=== PATIENT | female | born 1965 | race Asian ===

== ENCOUNTER 2025-02-24 21:45 | Inpatient (IN) | payer MEDICAID ==
[~2025-02-24] VITALS: Ht 157.5 cm; Wt 69.9 kg
[2025-02-24 23:00] VITALS: BP 138/82; PULSE 61; RESP 20; TEMP 36.6404
[2025-02-24] MEDS ORDERED: ONDANSETRON HCL 4MG/2ML INJ IV PRN (23:00)
[2025-02-24] MEDS ORDERED: MAGNESIUM/ALUMINUM HYDROXIDE/SIMETHICONE 30ML UDC PO PRN (23:00)
[2025-02-24] MEDS ORDERED: ACETAMINOPHEN 325MG TABLET PO PRN (23:00)
[2025-02-24] MEDS ORDERED: CLONIDINE 0.1MG TABLET PO PRN (23:00)
[2025-02-24] MEDS ORDERED: IPRATROPIUM/ALBUTEROL 0.5-3(2.5)MG/3ML NEB HHN PRN (23:00)
[2025-02-25] MEDS: DOCUSATE SODIUM 100MG CAPSULE PO PRN (06:43)
[2025-02-25 08:00] VITALS: BP 148/70; PULSE 83; TEMP 36.2
[2025-02-25] MEDS ORDERED: DEXTROSE 50% WATER 50ML SYRINGE IV PRN (08:45)
[2025-02-25] MEDS: AMLODIPINE 10MG TABLET PO SCH (09:23)
[2025-02-25] MEDS: INSULIN LISPRO 100 UNITS/ML SUBCUT SCH (09:25)
[2025-02-25 10:49] LABS: BASOPHILS % 0.2 % (0.0-2.0); EOSINOPHILS % 1.8 % (0.0-5.0); HEMATOCRIT. 42.6 % (36.0-48.0); HEMOGLOBIN. 14.2 g/dL (12.0-16.0); LYMPHOCYTES % 13.5 % (20.0-50.0); MEAN PLATELET VOLUME 9.2 fl (7.4-10.4); MONOCYTES % 7.7 % (2.0-8.0); NEUTROPHILS % 76.8 % (40.0-76.0); PLATELET 259 x1000/uL (130-400); RED BLOOD CELL COUNT 4.42 mill/uL (4.2-5.4); RED CELL DISTRIBUTION WIDTH 13.4 % (11.6-14.6)
[2025-02-25 11:01] LABS: CREATININE 0.8 mg/dL (0.6-1.0); TRIGLYCERIDE 231 mg/dL (0-150); UREA NITROGEN BLOOD 18 mg/dL (9-23)
[2025-02-25 11:02] LABS: ASPARTATE AMINOTRANSFERASE 162 IU/L (<34); LDL CHOLESTEROL 118 mg/dL (5-100)
[2025-02-25 11:03] LABS: BILIRUBIN TOTAL 0.7 mg/dL (0.1-1.0); PROTEIN TOTAL 7.6 g/dL (6.0-8.3)
[2025-02-25] MEDS: BLOOD SUGAR DIAGNOSTIC STRIP TEST SCH (11:15)
[2025-02-25 12:00] VITALS: BP 146/76; PULSE 80; TEMP 36.4
[2025-02-25] MEDS: ENOXAPARIN 40MG/0.4ML SYR SUBCUT SCH (12:33)
[2025-02-25] MEDS ORDERED: LORAZEPAM 0.5MG TABLET PO PRN (12:45)
[2025-02-25 19:17] VITALS: BP 159/87; PULSE 83; TEMP 36.4
[2025-02-25] MEDS: MELATONIN 3MG TABLET PO SCH (20:30)
[2025-02-25] MEDS ORDERED: ATORVASTATIN CALCIUM 40MG TABLET PO SCH (21:00)
[2025-02-26 08:00] VITALS: BP 136/83; PULSE 77; TEMP 36.3
[2025-02-26 08:06] LABS: BASOPHILS % 0.4 % (0.0-2.0); EOSINOPHILS % 2.0 % (0.0-5.0); HEMATOCRIT. 41.5 % (36.0-48.0); HEMOGLOBIN. 13.8 g/dL (12.0-16.0); LYMPHOCYTES % 20.3 % (20.0-50.0); MEAN PLATELET VOLUME 9.2 fl (7.4-10.4); MONOCYTES % 10.0 % (2.0-8.0); NEUTROPHILS % 67.3 % (40.0-76.0); PLATELET 255 x1000/uL (130-400); RED BLOOD CELL COUNT 4.28 mill/uL (4.2-5.4); RED CELL DISTRIBUTION WIDTH 13.5 % (11.6-14.6)
[2025-02-26 08:16] LABS: CREATININE 0.7 mg/dL (0.6-1.0); UREA NITROGEN BLOOD 15 mg/dL (9-23)
[2025-02-26 08:17] LABS: FOLIC ACID (FOLATE) SERUM > 20.00 ng/mL (>5.38); PROTEIN TOTAL 7.5 g/dL (6.0-8.3); VITAMIN B12 SERUM 1306 pg/mL (211-911)
[2025-02-26 08:18] LABS: ASPARTATE AMINOTRANSFERASE 126 IU/L (<34); BILIRUBIN TOTAL 0.9 mg/dL (0.1-1.0)
[2025-02-26] MEDS: ACETAMINOPHEN 325MG TABLET PO PRN (09:40)
[2025-02-26 12:00] VITALS: BP 136/73; PULSE 77; RESP 18; TEMP 36.4; O2SAT 98
[2025-02-26 15:51] LABS: CLARITY URINE TURBID (CLEAR); COLOR URINE YELLOW (YELLOW); GLUCOSE URINE NEGATIVE (NEGATIVE); KETONES URINE NEGATIVE (NEGATIVE); LEUKOCYTE ESTERASE URINE 3+ (NEGATIVE); NITRITE URINE POSITIVE (NEGATIVE); OCCULT BLOOD URINE 1+ (NEGATIVE); PH URINE 6.5 (4.5-8.0); PROTEIN URINE TRACE (NEGATIVE); SPECIFIC GRAVITY URINE 1.012 (1.005-1.030); UROBILINOGEN URINE 0.2 E.U./dL (0.2-1.0)
[2025-02-26 16:04] LABS: BACTERIA URINE 1+; SQUAMOUS EPITHELIAL CELL URINE 1+ /lpf (RARE/1+)
[2025-02-26 20:00] VITALS: BP 140/72; PULSE 81; RESP 19; TEMP 37.2; O2SAT 96
[2025-02-27 08:00] VITALS: BP 120/76; PULSE 67; RESP 17; TEMP 36.5; O2SAT 97
[2025-02-27] MEDS: FOLIC ACID 1MG TABLET PO SCH (10:24)
[2025-02-27] MEDS: THIAMINE HCL 100MG TABLET PO SCH (10:24)
[2025-02-27 20:00] VITALS: BP 123/68; PULSE 73; RESP 20; TEMP 36.4; O2SAT 99
[2025-02-28 08:00] VITALS: BP 91/70; PULSE 68; RESP 19; TEMP 37.1; O2SAT 98
[2025-02-28 20:00] VITALS: BP 131/64; PULSE 66; RESP 18; TEMP 36.2; O2SAT 98
[2025-03-01 08:00] VITALS: BP 147/69; PULSE 63; RESP 16; TEMP 36.6; O2SAT 97
[2025-03-01] MEDS ORDERED: NALOXONE HCL 0.4MG/ML VIAL IV PRN (14:30)
[2025-03-01] MEDS: ERGOCALCIFEROL 50000UNITS CAPSULE PO SCH (18:21)
[2025-03-01 20:00] VITALS: BP 126/76; PULSE 71; RESP 18; TEMP 36.2; O2SAT 97
[2025-03-02 08:00] VITALS: BP 142/77; PULSE 69; RESP 18; TEMP 36.7; O2SAT 98
[2025-03-02] MEDS: HYDROCODONE/ACETAMINOPHEN 5/325MG TABLET PO PRN (12:56)
[2025-03-02 20:00] VITALS: BP 153/66; PULSE 71; RESP 20; TEMP 36.6; O2SAT 98
[2025-03-03 08:00] VITALS: BP 161/81; PULSE 64; RESP 16; TEMP 36.4; O2SAT 98
[2025-03-03] MEDS: DIPHENHYDRAMINE 25MG CAPSULE PO PRN (10:41)
[2025-03-03 20:00] VITALS: BP 133/71; PULSE 69; RESP 18; TEMP 36.2; O2SAT 95
[2025-03-04 08:00] VITALS: BP 138/78; PULSE 66; RESP 17; TEMP 37.2; O2SAT 98
[2025-03-04 20:00] VITALS: BP 131/75; PULSE 65; RESP 18; TEMP 36.6; O2SAT 98
[2025-03-05 08:00] VITALS: BP 110/56; PULSE 69; RESP 18; TEMP 36.9; O2SAT 100
[2025-03-05 08:14] LABS: BASOPHILS % 0.7 % (0.0-2.0); EOSINOPHILS % 4.2 % (0.0-5.0); HEMATOCRIT. 40.7 % (36.0-48.0); HEMOGLOBIN. 13.4 g/dL (12.0-16.0); LYMPHOCYTES % 33.4 % (20.0-50.0); MEAN PLATELET VOLUME 8.8 fl (7.4-10.4); MONOCYTES % 7.1 % (2.0-8.0); NEUTROPHILS % 54.6 % (40.0-76.0); PLATELET 250 x1000/uL (130-400); RED BLOOD CELL COUNT 4.17 mill/uL (4.2-5.4); RED CELL DISTRIBUTION WIDTH 12.8 % (11.6-14.6)
[2025-03-05 08:14] LABS: CREATININE 0.6 mg/dL (0.6-1.0); UREA NITROGEN BLOOD 12 mg/dL (9-23)
[2025-03-05 08:16] LABS: ASPARTATE AMINOTRANSFERASE 21 IU/L (<34); BILIRUBIN TOTAL 0.7 mg/dL (0.1-1.0); PROTEIN TOTAL 7.2 g/dL (6.0-8.3)
[2025-03-05 20:00] VITALS: BP 119/87; PULSE 67; RESP 18; TEMP 36.6; O2SAT 96
[2025-03-06 08:00] VITALS: BP 143/80; PULSE 101; RESP 16; TEMP 36.2; O2SAT 99
[2025-03-06 20:00] VITALS: BP 120/69; PULSE 60; RESP 18; TEMP 36.5; O2SAT 96
[2025-03-07 06:47] VITALS: PULSE 60; PULSE 69; RESP 18; RESP 20; TEMP 97.7
[2025-03-07 08:00] VITALS: BP 132/80; PULSE 75; RESP 16; TEMP 37.2; O2SAT 97
[2025-03-07] MEDS: HYDROCODONE/ACETAMINOPHEN 5/325MG TABLET PO PRN (08:36)
[2025-03-07 20:00] VITALS: BP 127/68; PULSE 67; RESP 18; TEMP 36.4; O2SAT 96
[2025-03-08 07:28] LABS: BASOPHILS % 0.6 % (0.0-2.0); EOSINOPHILS % 5.6 % (0.0-5.0); HEMATOCRIT. 42.2 % (36.0-48.0); HEMOGLOBIN. 13.8 g/dL (12.0-16.0); LYMPHOCYTES % 28.7 % (20.0-50.0); MEAN PLATELET VOLUME 9.1 fl (7.4-10.4); MONOCYTES % 7.9 % (2.0-8.0); NEUTROPHILS % 57.2 % (40.0-76.0); PLATELET 235 x1000/uL (130-400); RED BLOOD CELL COUNT 4.35 mill/uL (4.2-5.4); RED CELL DISTRIBUTION WIDTH 12.7 % (11.6-14.6)
[2025-03-08 07:48] LABS: CREATININE 0.6 mg/dL (0.6-1.0); UREA NITROGEN BLOOD 11 mg/dL (9-23)
[2025-03-08 08:00] VITALS: BP 129/74; PULSE 65; RESP 18; TEMP 36.5; O2SAT 96
[2025-03-08] MEDS: DIPHENHYDRAMINE HCL/ZINC ACET 28 GM CREAM TOP PRN (19:18)
[2025-03-08 20:00] VITALS: BP 133/79; PULSE 77; RESP 20; TEMP 36.1; O2SAT 98
[2025-03-08] MEDS: DULOXETINE HCL 20MG DR CAPSULE PO SCH (21:33)
[2025-03-09 08:00] VITALS: BP 117/72; PULSE 75; RESP 18; TEMP 36.3; O2SAT 96
[2025-03-09 20:00] VITALS: BP 125/76; PULSE 66; RESP 18; TEMP 36.4; O2SAT 97
[2025-03-10 08:00] VITALS: BP 121/71; PULSE 74; RESP 18; TEMP 36.7; O2SAT 95
[2025-03-10 20:00] VITALS: BP 135/74; PULSE 75; RESP 18; TEMP 36.6; O2SAT 96
[2025-03-11 08:00] VITALS: BP 153/82; PULSE 66; RESP 17; TEMP 36.7; O2SAT 99
[2025-03-11] MEDS ORDERED: INFLUENZA VACCINE 05/PF 0.5 ML SYRINGE IM ONE (18:45)
[2025-03-11 19:37] VITALS: BP 128/74; PULSE 67; RESP 18; TEMP 36.7; O2SAT 99
[2025-03-11 19:50] VITALS: BP 128/74; PULSE 67; RESP 18; TEMP 36.7; O2SAT 99
[2025-03-12 08:00] VITALS: BP 116/69; PULSE 74; RESP 18; TEMP 36.7; O2SAT 99
[2025-03-12 20:00] VITALS: BP 147/86; PULSE 96; RESP 18; TEMP 36.6; O2SAT 97
[2025-03-13 07:03] LABS: CREATININE 0.6 mg/dL (0.6-1.0); UREA NITROGEN BLOOD 14 mg/dL (9-23)
[2025-03-13 07:19] LABS: BASOPHILS % 0.5 % (0.0-2.0); EOSINOPHILS % 5.8 % (0.0-5.0); HEMATOCRIT. 40.7 % (36.0-48.0); HEMOGLOBIN. 13.7 g/dL (12.0-16.0); LYMPHOCYTES % 28.9 % (20.0-50.0); MEAN PLATELET VOLUME 9.6 fl (7.4-10.4); MONOCYTES % 8.1 % (2.0-8.0); NEUTROPHILS % 56.7 % (40.0-76.0); PLATELET 199 x1000/uL (130-400); RED BLOOD CELL COUNT 4.21 mill/uL (4.2-5.4); RED CELL DISTRIBUTION WIDTH 12.6 % (11.6-14.6)
[2025-03-13 08:00] VITALS: BP 122/63; PULSE 74; RESP 18; TEMP 36.7; O2SAT 100
[2025-03-13] MEDS ORDERED: DIPHENHYDRAMINE 50MG/ML VIAL IV PRN (12:00)
[2025-03-13] MEDS: DIPHENHYDRAMINE 25MG CAPSULE PO PRN (13:46)
[2025-03-13 20:00] VITALS: BP 147/63; PULSE 82; RESP 18; TEMP 36.8; O2SAT 99
[2025-03-14 08:00] VITALS: BP 121/67; PULSE 71; RESP 16; TEMP 36.4; O2SAT 95
[2025-03-14 20:00] VITALS: BP 116/66; PULSE 77; RESP 20; TEMP 36.1; O2SAT 98
[2025-03-15 08:00] VITALS: BP 139/84; PULSE 61; RESP 18; TEMP 36.5; O2SAT 98
[2025-03-15 20:00] VITALS: BP 128/71; PULSE 74; RESP 18; TEMP 36.4; O2SAT 95
[2025-03-16 08:00] VITALS: BP 131/76; PULSE 72; RESP 19; TEMP 36.5; O2SAT 95
[2025-03-16 20:00] VITALS: BP 121/70; PULSE 72; RESP 18; TEMP 36.4; O2SAT 100
[2025-03-17 08:00] VITALS: BP 125/74; PULSE 68; RESP 18; TEMP 36.5; O2SAT 100
[2025-03-17 11:20] LABS: TROPONIN I HIGH SENSITIVITY 46 ng/L (3.0-34)
[2025-03-17] MEDS: ASPIRIN 81MG EC TABLET PO NR (12:25)
[2025-03-17 20:00] VITALS: BP 119/62; PULSE 76; RESP 17; TEMP 36.7; O2SAT 97
[2025-03-17] MEDS: ATORVASTATIN CALCIUM 10MG TABLET PO SCH (21:29)
[2025-03-18 08:00] VITALS: BP 117/72; PULSE 64; RESP 18; TEMP 36.6; O2SAT 96
[2025-03-18 08:14] LABS: BASOPHILS % 0.7 % (0.0-2.0); EOSINOPHILS % 4.7 % (0.0-5.0); HEMATOCRIT. 41.1 % (36.0-48.0); HEMOGLOBIN. 13.6 g/dL (12.0-16.0); LYMPHOCYTES % 31.1 % (20.0-50.0); MEAN PLATELET VOLUME 9.5 fl (7.4-10.4); MONOCYTES % 8.4 % (2.0-8.0); NEUTROPHILS % 55.1 % (40.0-76.0); PLATELET 187 x1000/uL (130-400); RED BLOOD CELL COUNT 4.28 mill/uL (4.2-5.4); RED CELL DISTRIBUTION WIDTH 12.6 % (11.6-14.6)
[2025-03-18] MEDS: AMLODIPINE 2.5MG TABLET PO SCH (09:27)
[2025-03-18] MEDS: ASPIRIN 81MG EC TABLET PO SCH (09:27)
[2025-03-18 10:14] LABS: CREATININE 0.7 mg/dL (0.6-1.0); UREA NITROGEN BLOOD 15 mg/dL (9-23)
[2025-03-18 10:23] LABS: TROPONIN I HIGH SENSITIVITY 48 ng/L (3.0-34)
[2025-03-18 20:00] VITALS: BP 117/74; PULSE 74; RESP 18; TEMP 36.4; O2SAT 96
[2025-03-19 08:00] VITALS: BP 120/72; PULSE 80; RESP 20; TEMP 36.8; O2SAT 97
[2025-03-19 20:00] VITALS: BP 141/74; PULSE 73; RESP 18; TEMP 36.6; O2SAT 98
[2025-03-20 08:00] VITALS: BP 134/77; PULSE 69; RESP 20; TEMP 37.1; O2SAT 95
[2025-03-20 20:00] VITALS: BP 123/44; PULSE 75; RESP 18; TEMP 35.7; O2SAT 98
[2025-03-21 07:40] LABS: BASOPHILS % 0.6 % (0.0-2.0); EOSINOPHILS % 4.1 % (0.0-5.0); HEMATOCRIT. 39.9 % (36.0-48.0); HEMOGLOBIN. 13.4 g/dL (12.0-16.0); LYMPHOCYTES % 29.2 % (20.0-50.0); MEAN PLATELET VOLUME 9.6 fl (7.4-10.4); MONOCYTES % 8.4 % (2.0-8.0); NEUTROPHILS % 57.7 % (40.0-76.0); PLATELET 178 x1000/uL (130-400); RED BLOOD CELL COUNT 4.14 mill/uL (4.2-5.4); RED CELL DISTRIBUTION WIDTH 12.2 % (11.6-14.6)
[2025-03-21 08:00] VITALS: BP 117/57; PULSE 66; RESP 20; TEMP 36.4; O2SAT 95
[2025-03-21 08:04] LABS: CREATININE 0.7 mg/dL (0.6-1.0)
[2025-03-21 08:06] LABS: UREA NITROGEN BLOOD 8 mg/dL (9-23)
[2025-03-21 08:41] LABS: TROPONIN I HIGH SENSITIVITY 47 ng/L (3.0-34)
[2025-03-21 20:00] VITALS: BP 140/81; PULSE 74; RESP 18; TEMP 36.4; O2SAT 96
[2025-03-22 08:00] VITALS: BP 118/76; PULSE 71; RESP 16; TEMP 36.2; O2SAT 98
[2025-03-22 20:00] VITALS: BP 120/68; PULSE 66; RESP 20; TEMP 36.2; O2SAT 96
[2025-03-23 08:00] VITALS: BP 130/83; PULSE 71; RESP 19; TEMP 36.6; O2SAT 96
[2025-03-23 20:00] VITALS: BP 122/84; PULSE 69; RESP 20; TEMP 36; O2SAT 98
[2025-03-24 08:00] VITALS: BP 125/74; PULSE 77; RESP 19; TEMP 36.6; O2SAT 99
[2025-03-24 20:00] VITALS: BP 153/75; PULSE 65; RESP 18; TEMP 36.6; O2SAT 97
[2025-03-25 08:00] VITALS: BP 121/71; PULSE 74; RESP 18; TEMP 36.4; O2SAT 98
[2025-03-25 09:10] LABS: BASOPHILS % 0.8 % (0.0-2.0); EOSINOPHILS % 3.0 % (0.0-5.0); HEMATOCRIT. 40.1 % (36.0-48.0); HEMOGLOBIN. 13.2 g/dL (12.0-16.0); LYMPHOCYTES % 30.2 % (20.0-50.0); MEAN PLATELET VOLUME 9.3 fl (7.4-10.4); MONOCYTES % 6.0 % (2.0-8.0); NEUTROPHILS % 60.0 % (40.0-76.0); PLATELET 207 x1000/uL (130-400); RED BLOOD CELL COUNT 4.16 mill/uL (4.2-5.4); RED CELL DISTRIBUTION WIDTH 12.8 % (11.6-14.6)
[2025-03-25 09:27] LABS: CREATININE 0.7 mg/dL (0.6-1.0)
[2025-03-25 09:28] LABS: UREA NITROGEN BLOOD 11 mg/dL (9-23)
[2025-03-25 09:41] LABS: TROPONIN I HIGH SENSITIVITY 54 ng/L (3.0-34)
[2025-03-25] MEDS: DICLOFENAC SODIUM 1% GEL 50GM TOP SCH (14:39)
[2025-03-25 20:00] VITALS: BP 143/87; PULSE 65; RESP 18; TEMP 36.5; O2SAT 100
[2025-03-26 08:00] VITALS: BP 134/74; PULSE 63; RESP 19; TEMP 36.5; O2SAT 97
[2025-03-26 20:00] VITALS: BP 121/73; PULSE 66; RESP 19; TEMP 36.5; O2SAT 97
[2025-03-27 08:00] VITALS: BP 114/69; PULSE 70; RESP 18; TEMP 36.4; O2SAT 98
[2025-03-27 20:00] VITALS: BP 138/70; PULSE 65; RESP 19; TEMP 35.7; O2SAT 98
[2025-03-28 08:20] VITALS: BP 121/67; PULSE 84; RESP 19; TEMP 36.6; O2SAT 96
[2025-03-28 20:00] VITALS: BP 128/76; PULSE 67; RESP 18; TEMP 36; O2SAT 100
[2025-03-29 06:38] LABS: BASOPHILS % 0.5 % (0.0-2.0); EOSINOPHILS % 4.1 % (0.0-5.0); HEMATOCRIT. 38.1 % (36.0-48.0); HEMOGLOBIN. 12.8 g/dL (12.0-16.0); LYMPHOCYTES % 31.5 % (20.0-50.0); MEAN PLATELET VOLUME 8.7 fl (7.4-10.4); MONOCYTES % 6.9 % (2.0-8.0); NEUTROPHILS % 57.0 % (40.0-76.0); PLATELET 222 x1000/uL (130-400); RED BLOOD CELL COUNT 3.97 mill/uL (4.2-5.4); RED CELL DISTRIBUTION WIDTH 12.7 % (11.6-14.6)
[2025-03-29 06:50] LABS: CREATININE 0.6 mg/dL (0.6-1.0)
[2025-03-29 06:52] LABS: UREA NITROGEN BLOOD 10 mg/dL (9-23)
[2025-03-29 08:00] VITALS: BP 119/73; PULSE 88; RESP 16; TEMP 36.5; O2SAT 100
[2025-03-29 20:00] VITALS: BP 132/69; PULSE 70; RESP 17; TEMP 36.3; O2SAT 98
[2025-03-30 08:00] VITALS: BP 112/66; PULSE 77; RESP 20; TEMP 36.7; O2SAT 96
[2025-03-30 20:00] VITALS: BP 131/80; PULSE 62; RESP 18; TEMP 36.4; O2SAT 95
[2025-03-31 08:00] VITALS: BP 124/71; PULSE 66; RESP 18; TEMP 36.4; O2SAT 98
[2025-03-31 20:00] VITALS: BP 119/67; PULSE 66; RESP 18; TEMP 36.4; O2SAT 96
[2025-04-01 08:00] VITALS: BP 112/69; PULSE 56; RESP 16; TEMP 36.5; O2SAT 97
[2025-04-01] MEDS ORDERED: FOLI-43 PO (10:06)
[2025-04-01] MEDS ORDERED: CHOL400D7 MT (10:06)
[2025-04-01] MEDS ORDERED: THIA100T72 PO (10:06)
[2025-04-01] MEDS ORDERED: ATOR10TA PO (10:06)
[2025-04-01] MEDS ORDERED: AMLO2.5T45 PO (10:06)
[2025-04-01] MEDS ORDERED: ASPI-1406 PO (10:06)
[2025-04-01] MEDS: INFLUENZA VACCINE 05/PF 0.5 ML SYRINGE IM ONE (15:40)
[2025-04-01 20:00] VITALS: BP 115/71; PULSE 62; RESP 18; TEMP 36.4; O2SAT 98
[2025-04-02 08:00] VITALS: BP 122/80; PULSE 69; RESP 18; TEMP 36.4; O2SAT 98
[2025-04-02 10:43] VITALS: BP 126/75; PULSE 69; RESP 18; TEMP 97.5
== END 2025-04-02 12:30 | disposition home health service (06) | DRG 44 ==
PROVIDERS: ADMIT Physical Medicine & Rehabilitation Spinal Cord Injury Medicine; ATTEND Family Medicine Adult Medicine
DX: I61.0 Nontraumatic intracerebral hemorrhage in hemisphere, subcortical (principal); J96.01 Acute respiratory failure with hypoxia; I63.9 Cerebral infarction, unspecified; I16.1 Hypertensive emergency; R13.10 Dysphagia, unspecified; I21.A1 Myocardial infarction type 2; G81.94 Hemiplegia, unspecified affecting left nondominant side; E11.9 Type 2 diabetes mellitus without complications; B96.20 Unspecified Escherichia coli [E. coli] as the cause of diseases classified elsewhere; I11.0 Hypertensive heart disease with heart failure; I50.30 Unspecified diastolic (congestive) heart failure; F10.20 Alcohol dependence, uncomplicated; E55.9 Vitamin D deficiency, unspecified; E66.811 Obesity, class 1; N39.0 Urinary tract infection, site not specified; E78.1 Pure hyperglyceridemia; F32.9 Major depressive disorder, single episode, unspecified; X58.XXXD Exposure to other specified factors, subsequent encounter; M94.0 Chondrocostal junction syndrome [Tietze]; R29.6 Repeated falls; R53.81 Other malaise; S00.83XD Contusion of other part of head, subsequent encounter; Z79.82 Long term (current) use of aspirin; Z68.30 Body mass index [BMI] 30.0-30.9, adult; I25.2 Old myocardial infarction; Z79.84 Long term (current) use of oral hypoglycemic drugs; Z79.899 Other long term (current) drug therapy; R47.01 Aphasia; R47.1 Dysarthria and anarthria
CPT/HCPCS: 36415; 70486; 70551; 73522; 74230; 80048; 80053; 80061; 81003; 82140; 82306; 82607; 82728; 82746; 82962; 83036; 83540; 83550; 84134; 84145; 84443; 84484; 85025; 87077; 87186; 90686; 92523; 92610; 92611; 93005; 93306; 93970; 97110; 97112; 97116; 97140; 97162; 97166; 97530; 97535; 97542; 97760; A4565; A4606; A6449; J1650; J1815; Q0163; 97763-GO